=== PATIENT | female | born 1995 | race Caucasian/White ===

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

== ENCOUNTER 2019-03-17 07:55 | Emergency (ER) | payer OTHER ==
[~2019-03-17] VITALS: Ht 154.9 cm; Wt 66.4 kg
[2019-03-17 08:02] VITALS: Ht 154.9 cm; Wt 66.4 kg
[2019-03-17 09:05] VITALS: BP 111/71
== END 2019-03-17 09:05 | disposition home or self-care (01) ==
LOC: ED 07:55
DX: M54.5 Low back pain (principal)

== ENCOUNTER 2020-06-27 14:32 | Emergency (ER) | payer OTHER ==
[~2020-06-27] VITALS: Ht 154.9 cm; Wt 75.3 kg
[2020-06-27 14:57] VITALS: Ht 154.9 cm; Wt 75.3 kg
[2020-06-27 18:00] VITALS: BP 110/68
== END 2020-06-27 17:45 | disposition home or self-care (01) ==
LOC: ED 14:32
DX: O9A.213 Injury, poisoning and certain other consequences of external causes complicating pregnancy, third trimester (principal); Z3A.33 33 weeks gestation of pregnancy